=== PATIENT | female | born 1945 | race Two or more races ===

== ENCOUNTER 2020-12-21 09:28 | Outpatient (CLI) | payer OTHER | END 2020-12-21 09:36 | disposition home or self-care (01) | LOC: RX STUDY 09:28 | PROVIDERS: ATTEND Specialist | DX: K44.9 Diaphragmatic hernia without obstruction or gangrene (principal); J45.991 Cough variant asthma; R13.19 Other dysphagia ==

== ENCOUNTER 2025-03-11 09:29 | Outpatient (CLI) | payer OTHER | END 2025-03-11 09:30 | disposition home or self-care (01) | LOC: NUCLEAR 09:29 | PROVIDERS: ATTEND Internal Medicine Gastroenterology | DX: K81.1 Chronic cholecystitis (principal) | CPT/HCPCS: 78227; A9537 ==